=== PATIENT | female | born 1965 | race Caucasian/White ===

== ENCOUNTER 2017-04-17 12:57 | Emergency (ER) | payer MEDICAID, OTHER ==
[~2017-04-17] VITALS: Ht 172.7 cm; Wt 63.5 kg
[~2017-04-17 12:57] MED LIST: XANAX2 MG ORAL
--- NOTE | 2017-04-17 13:46 | Emergency Room Report ---
History of Present Illness General Chief Complaint: Multiple Trauma/Fall Source: Patient Present Illness HPI Patient is a 51-year-old female who presented after a reported fall. Patient recently been started on trazodone. The patient previously been taking Xanax. She reports having recently been taken off of that medication and being started on trazodone. She stated that she had become increasingly shaky. She denied any fever. She reported feeling palpitations prior passing out. Allergies: Coded Allergies: No Known Allergies (Unverified , 03/30/14) Patient History Past Medical History: see triage record Reviewed Nursing Documentation: PMH: Agreed, PSxH: Agreed Nursing Documentation-PMH Past Medical History: No History, Except For Hx Neurological Problems: Yes - INSOMNIA Review of Systems All Other Systems: negative except mentioned in HPI Physical Exam Vital Signs Date Time Temp Pulse Resp B/P Pulse Ox O2 Delivery O2 Flow Rate FiO2 04/17/17 13:00 98.1 104 20 96/63 99 Room Air Sp02 EP Interpretation: reviewed, normal General Appearance: normal inspection, well appearing, no apparent distress, alert, GCS 15, non-toxic Head: atraumatic ENT: normal ENT inspection, hearing grossly normal, normal voice Neck: normal inspection, full range of motion, supple, no bony tend Respiratory: normal inspection, lungs clear, normal breath sounds, no respiratory distress, no retraction, no wheezing Cardiovascular #1: regular rate, rhythm, no edema Gastrointestinal: normal inspection, normal bowel sounds, non tender, soft, no guarding, no hernia Genitourinary: no CVA tenderness Musculoskeletal: normal inspection, back normal, normal range of motion Neurologic: normal inspection, alert, oriented x3, responsive, 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 Differential diagnosis included but not limited to syncope versus seizure. Potential causes for syncope included arrhythmia, dehydration, acute coronary syndrome, severe anemia, pulmonary embolus. Because of complexity of patient's case laboratory testing and imaging studies were ordered. EKG interpreted by me showed normal sinus rhythm with a rate of [address] or T wave changes. The patient was given oral Xanax. The [facility] database was reviewed for the patient's prior prescription history. The patient was given prescription for Xanax. She is advised followup with her primary care physician in 2 days. Last Vital Signs Date Time Temp Pulse Resp B/P Pulse Ox O2 Delivery O2 Flow Rate FiO2 04/17/17 13:00 98.1 104 20 96/63 99 Room Air Status: improved Disposition: HOME, SELF-CARE Condition: Stable Referrals: NON PHYSICIAN (PCP) August Squires Apr 17, 2017 13:46
[2017-04-17] MEDS ORDERED: XANAX1 MG ORAL (13:48)
[2017-04-17 13:56] LABS: TROPONIN I < 0.30 ng/mL (<=0.30)
[2017-04-17 13:59] LABS: EOSINOPHILS % (AUTO) 2.1 % (0.0-3.0); LYMPHOCYTES % (AUTO) 33.3 % (20.0-45.0); MEAN CORPUSCULAR HEMOGLOBIN 31.6 PG (27.0-31.0); MEAN CORPUSCULAR VOLUME 90 FL (80-99); MEAN PLATELET VOLUME 5.5 FL (6.5-10.1); NEUTROPHILS % (AUTO) 56.6 % (45.0-75.0); PLATELET COUNT 385 K/UL (150-450); RED BLOOD COUNT 3.94 M/UL (4.20-5.40); RED CELL DISTRIBUTION WIDTH 11.2 % (11.6-14.8); WHITE BLOOD COUNT 12.3 K/UL (4.8-10.8)
[2017-04-17 13:59] LABS: APPEARANCE,URINE CLEAR; KETONES,URINE NEGATIVE (NEGATIVE); LEUKOCYTE ESTERASE ,URINE NEGATIVE (NEGATIVE); NITRITE,URINE NEGATIVE (NEGATIVE); PH,URINE 5 (4.5-8.0); PROTEIN,URINE NEGATIVE (NEGATIVE); UROBILINOGEN,URINE NORMAL MG/DL (0.0-1.0)
[2017-04-17 14:03] LABS: WBC,URINE 0 /HPF (0 - 2)
[2017-04-17 14:04] LABS: SQUAMOUS EPITHELIAL CELL,UR OCCASIONAL /LPF (NONE/OCC)
[2017-04-17] MEDS ORDERED: ALPRAZolam 0.5mg tab ORAL ONE (14:45)
[2017-04-17 18:02] VITALS: BP 102/67
--- NOTE | 2017-04-19 08:41 | Diagnostic Imaging Report ---
Indication: Head pain Technique: Continuous helical CT scanning of the head was performed utilizing automated exposure control without intravenous contrast material. Axial and coronal reconstructions were obtained. Comparison: None CT dose: Total DLP 1390 mGycm; CTDI vol 70.4 mGy Findings: There is no acute intracranial hemorrhage, mass effect or cortical edema. The ventricles, cisterns and sulci are within normal limits for age. Periventricular hypoattenuation is seen, a nonspecific finding. The posterior fossa and fourth ventricle are unremarkable. Sellar and suprasellar regions are grossly unremarkable. Visualized mastoid air cells and paranasal sinuses are unremarkable. No focal lesions of the bony calvarium or soft tissues of the scalp are seen. Impression: No evidence of acute intracranial hemorrhage, mass effect or cortical edema. MRI may be obtained for more sensitive evaluation as clinically indicated. Mild nonspecific periventricular hypoattenuation suggestive of age-related chronic ischemic microvascular changes. The CT scanner at [facility] is accredited by the [employer] and the scans are performed using protocols designed to limit radiation exposure to as low as reasonably achievable to attain images of sufficient resolution adequate for diagnostic evaluation.
== END 2017-04-17 15:23 | disposition home or self-care (01) ==
LOC: EMR 13:31
DX: S00.83XA Contusion of other part of head, initial encounter (principal); W19.XXXA Unspecified fall, initial encounter; Y92.89 Other specified places as the place of occurrence of the external cause; F13.239 Sedative, hypnotic or anxiolytic dependence with withdrawal, unspecified; Z79.899 Other long term (current) drug therapy; R51 Headache; G47.00 Insomnia, unspecified
CPT/HCPCS: 36415; 70450; 80300; 81001; 84484; 85025; 93005; 99283

== ENCOUNTER 2018-08-26 12:36 | Emergency (ER) | payer MEDICAID ==
[~2018-08-26] VITALS: Ht 172.7 cm; Wt 68.9 kg
[~2018-08-26 12:36] MED LIST changes: +XANAX1 MG ORAL
[2018-08-26 13:01] VITALS: BP 115/79
[2018-08-26] MEDS: LORazepam 1mg tab ORAL ONE ×2 (13:06→13:10)
--- NOTE | 2018-08-26 13:19 | Emergency Room Report ---
History of Present Illness General Chief Complaint: General Complaint Source: Patient, Medical Record Present Illness HPI Pt. reported having anxiety and being out of her xanax.. Pt. is requesting anti- anxiety medication. She is poorly cooperative which limits HPI and ROS. -Pt. did not want to be evaluated, she "said nobody is listening to me, Im leaving" Allergies: Coded Allergies: No Known Allergies (Unverified , 03/30/14) Patient History Past Medical History: see triage record, psych hx - anxiety and insomnia Past Surgical History: unable to obtain Pertinent Family History: unable to obtain Last Menstrual Period: 08/02/18 Now: No Reviewed Nursing Documentation: PMH: Agreed; PSxH: Agreed Nursing Documentation-PMH Past Medical History: No History, Except For History Of Psychiatric Problem: No - panic attack Hx Neurological Problems: No - INSOMNIA Review of Systems All Other Systems: limited - pt. not cooperative. Physical Exam Vital Signs Date Time Temp Pulse Resp B/P (MAP) Pulse Ox O2 Delivery O2 Flow Rate FiO2 08/26/18 12:43 98.2 87 18 115/79 97 Room Air Medical Decision Making PA Attestation Dr. Blas Diagnostic Impression: Primary Impression: Medication refill ER Course PT. was very restricted in affect. in a poor mood. Pt. reported having anxiety and being out of her xanax. Ativan was ordered. - Pt. declined Ativan from the nurse and requested xanax.- pt. became very upset because of this. - Pt. did not want to be evaluated, she "said nobody is listening to me, I keep repeating myself and being asked the same questions, Im leaving" This pt. is alert, oriented, and has the capacity to make decisions on her own. based on initial vital signs, and pt. physical appearance of being Non-toxic and NAD the pt. is stable to make her own decisions. Last Vital Signs Date Time Temp Pulse Resp B/P (MAP) Pulse Ox O2 Delivery O2 Flow Rate FiO2 08/26/18 13:01 98.2 87 18 115/79 97 Room Air Disposition: ELOPED Condition: Unknown Vielka Quinn Aug 26, 2018 13:19
[2018-08-26 13:21] VITALS: BP 115/79
== END 2018-08-26 13:21 | disposition home or self-care (01) ==
LOC: EMR 13:00
DX: Z76.0 Encounter for issue of repeat prescription (principal); F41.9 Anxiety disorder, unspecified; G47.00 Insomnia, unspecified
CPT/HCPCS: 99282